=== PATIENT | female | born 1960 | race Caucasian/White ===

== ENCOUNTER 2016-08-17 22:49 | Emergency (ER) | payer OTHER ==
[~2016-08-17] VITALS: Ht 157.5 cm; Wt 77.0 kg
[~2016-08-17 22:49] MED LIST: AMLO-512 PO; ASPI-556 PO; GABA-531 PO; LISI-618 PO; METF500T4 PO
[2016-08-17 23:01] LABS: GLUCOSE,POINT OF CARE 253 MG/DL (70-110)
[2016-08-18] MEDS ORDERED: LIDOCAINE HCL BUFFERED 1% 20 ML VIAL INJ ONE
[2016-08-18] MEDS ORDERED: BACITRACIN/POLYMYXIN B 15 GM OINTMENT TP ONE
[2016-08-18] MEDS ORDERED: PERTUSS(ACELL),DIPH,TET VAC/PF 0.5 ML VIAL IM ONE
[2016-08-18 00:58] VITALS: BP 148/91
== END 2016-08-18 01:01 | disposition home or self-care (01) ==
LOC: EMS 22:50
DX: S61.211A Laceration without foreign body of left index finger without damage to nail, initial encounter (principal); E11.65 Type 2 diabetes mellitus with hyperglycemia; I10 Essential (primary) hypertension; Z88.1 Allergy status to other antibiotic agents; Z88.5 Allergy status to narcotic agent; Z88.6 Allergy status to analgesic agent; Z79.82 Long term (current) use of aspirin; W26.0XXA Contact with knife, initial encounter; Y93.89 Activity, other specified; Y92.89 Other specified places as the place of occurrence of the external cause; Y99.8 Other external cause status
CPT/HCPCS: 12001; 82962; 90471; 90715; 99283; J3490

== ENCOUNTER 2016-08-27 10:20 | Emergency (ER) | payer OTHER ==
[~2016-08-27] VITALS: Ht 157.5 cm; Wt 75.0 kg
[2016-08-27 10:52] LABS: GLUCOSE,POINT OF CARE 357 MG/DL (70-110)
[2016-08-27] MEDS ORDERED: LIDOCAINE HCL 2% VISCOUS 15 ML SOLUTION UDCUP PO ONE (12:15)
[2016-08-27] MEDS ORDERED: MetFORMIN HCL 500 MG TABLET PO ONE (12:15)
[2016-08-27] MEDS ORDERED: LISINOPRIL 10 MG TABLET PO ONE (12:15)
[2016-08-27] MEDS ORDERED: GABAPENTIN 100 MG CAPSULE PO ONE (12:15)
[2016-08-27] MEDS ORDERED: AmLODIPine BESYLATE 5 MG TABLET PO ONE (12:15)
[2016-08-27] MEDS ORDERED: LIDOCAINE HCL BUFFERED 1% 20 ML VIAL INJ ONE (13:00)
[2016-08-27] MEDS ORDERED: LIDOCAINE HCL 1% 10 ML VIAL INJ ONE (13:00)
[2016-08-27] MEDS: HYDROCODONE/ACETAMINOPHEN 5-325 MG TABLET PO ONE ×2 (13:03→13:06)
[2016-08-27] MEDS ORDERED: CEPHALEXIN MONOHYDRATE 500 MG CAPSULE PO ONE (13:30)
[2016-08-27] MEDS ORDERED: BACITRACIN 0.9 GM PACKET OINTMENT TP ONE (13:30)
[2016-08-27 13:35] VITALS: BP 141/85
== END 2016-08-27 13:55 | disposition home or self-care (01) ==
LOC: EMS 10:20
DX: S61.211D Laceration without foreign body of left index finger without damage to nail, subsequent encounter (principal); L08.9 Local infection of the skin and subcutaneous tissue, unspecified; I10 Essential (primary) hypertension; E11.9 Type 2 diabetes mellitus without complications; Z79.82 Long term (current) use of aspirin; Z91.14 Patient's other noncompliance with medication regimen; Z88.5 Allergy status to narcotic agent; Z88.6 Allergy status to analgesic agent; Z88.2 Allergy status to sulfonamides; X58.XXXD Exposure to other specified factors, subsequent encounter; Y92.89 Other specified places as the place of occurrence of the external cause; Y99.8 Other external cause status
CPT/HCPCS: 10060; 82962; 99284; J3490; 29105

== ENCOUNTER 2018-03-15 22:50 | Emergency (ER) | payer OTHER ==
[~2018-03-15] VITALS: Ht 157.5 cm; Wt 77.3 kg
[~2018-03-15 22:50] MED LIST changes: +METF-444 PO; -METF500T4 PO
[2018-03-15 23:03] LABS: GLUCOSE,POINT OF CARE 291 MG/DL (70-110)
[2018-03-15] MEDS ORDERED: KETOROLAC TROMETHAMINE 60 MG/2 ML VIAL IM ONE (23:45)
[2018-03-15] MEDS ORDERED: CARISOPRODOL 350 MG TABLET PO ONE (23:45)
[2018-03-15 23:52] LABS: APPEARANCE,URINE CLEAR (CLEAR); BILIRUBIN,URINE NEGATIVE (NEGATIVE); GLUCOSE, URINE (UA) >=1000 mg/dL (NEGATIVE); KETONES,URINE NEGATIVE (NEGATIVE); LEUKOCYTE ESTERASE ,URINE NEGATIVE (NEGATIVE); NITRATE,URINE NEGATIVE (NEGATIVE); OCCULT BLOOD,URINE NEGATIVE (NEGATIVE); PH,URINE 5.5 (5.0-8.0); PROTEIN,URINE TRACE (NEGATIVE); UROBILINOGEN,URINE 0.2 mg/dL (<=1.0)
[2018-03-15 23:58] LABS: EOSINOPHILS % (AUTO) 1.9 % (1.0-6.0); HEMATOCRIT 47.1 % (36-46); HEMOGLOBIN 15.9 g/dL (12.0-16.0); LYMPHOCYTES # (AUTO) 3.7 K/uL (1.0-4.8); LYMPHOCYTES % (AUTO) 39.7 % (22.0-44.0); MEAN CORPUSCULAR HEMOGLOBIN 28.8 pg (26.0-34.0); MEAN CORPUSCULAR HGB CONC 33.7 G/dL (31.0-37.0); MEAN CORPUSCULAR VOLUME 85 fL (80-100); MONOCYTES # (AUTO) 0.5 K/uL (0.1-1.0); MONOCYTES % (AUTO) 5.5 % (2.0-9.0); NEUTROPHILS # (AUTO) 4.9 K/uL (1.8-7.7); NEUTROPHILS % (AUTO) 51.9 % (40.0-70.0); PLATELET COUNT (AUTO) 164 K/uL (150-450); RED BLOOD CELL COUNT(AUTO) 5.51 MIL/uL (4.00-5.20); RED CELL DISTRIBUTION WIDTH 13.2 % (11.5-14.5)
[2018-03-16 00:04] LABS: BACTERIA,URINE None Seen /HPF (None Seen); RBC,URINE 0-2 /HPF (0-2); SQUAMOUS EPITHELIAL CELL,UR Few /LPF (None Seen); WBC,URINE 0-2 /HPF (0-5)
[2018-03-16 01:00] VITALS: BP 144/87
== END 2018-03-16 03:44 | disposition left against medical advice (07) ==
LOC: EMS 22:51
DX: E11.42 Type 2 diabetes mellitus with diabetic polyneuropathy (principal); M54.5 Low back pain; G89.29 Other chronic pain; I10 Essential (primary) hypertension; Z90.721 Acquired absence of ovaries, unilateral; Z88.2 Allergy status to sulfonamides; Z88.6 Allergy status to analgesic agent; Z88.5 Allergy status to narcotic agent; Z79.82 Long term (current) use of aspirin; Z79.84 Long term (current) use of oral hypoglycemic drugs; Z79.899 Other long term (current) drug therapy
CPT/HCPCS: 36415; 72131; 81001; 82962; 85025; 96372; 99285; J1885; 85007

== ENCOUNTER 2019-03-26 20:01 | Emergency (ER) | payer OTHER ==
[~2019-03-26] VITALS: Ht 157.5 cm; Wt 75.0 kg
[~2019-03-26 20:01] MED LIST changes: -AMLO-512 PO; +AMLO10TA7 PO
[2019-03-26 20:45] LABS: GLUCOSE,POINT OF CARE 271 MG/DL (70-110)
[2019-03-26] MEDS ORDERED: CYCLOBENZAPRINE HCL 10 MG TABLET PO ONE (21:30)
[2019-03-26 21:58] VITALS: BP 141/84
== END 2019-03-26 22:08 | disposition home or self-care (01) ==
LOC: EMS 20:02
DX: M62.838 Other muscle spasm (principal); M79.601 Pain in right arm; I10 Essential (primary) hypertension; E11.9 Type 2 diabetes mellitus without complications; Z98.890 Other specified postprocedural states; Z79.899 Other long term (current) drug therapy; Z79.82 Long term (current) use of aspirin; Z88.2 Allergy status to sulfonamides; Z88.6 Allergy status to analgesic agent; Z88.5 Allergy status to narcotic agent

== ENCOUNTER 2019-05-28 21:13 | Emergency (ER) | payer OTHER | END 2019-05-28 21:30 | disposition left against medical advice (07) | LOC: EMS 21:14 | DX: R51 Headache (principal); Z53.21 Procedure and treatment not carried out due to patient leaving prior to being seen by health care provider ==

== ENCOUNTER 2020-12-18 10:18 | Emergency (ER) | payer OTHER ==
[~2020-12-18] VITALS: Ht 162.6 cm; Wt 79.5 kg
[~2020-12-18 10:18] MED LIST changes: +AMLO-258 PO; -AMLO10TA7 PO; -LISI-618 PO; +LISI20TA24 PO
[2020-12-18 10:21] VITALS: BP 166/115
== END 2020-12-18 11:44 | disposition home or self-care (01) ==
LOC: EMS 10:31
DX: G51.0 Bell's palsy (principal); E11.9 Type 2 diabetes mellitus without complications; I10 Essential (primary) hypertension; Z88.1 Allergy status to other antibiotic agents; Z88.5 Allergy status to narcotic agent; Z79.899 Other long term (current) drug therapy; Z79.82 Long term (current) use of aspirin
CPT/HCPCS: 70450; 82962; 99284

== ENCOUNTER 2021-03-14 22:20 | Inpatient (IN) | payer OTHER ==
[~2021-03-14] VITALS: Ht 157.5 cm; Wt 77.3 kg
[2021-03-14 23:15] LABS: EOSINOPHILS % (AUTO) 2.9 % (1.0-6.0); HEMATOCRIT 46.2 % (36-46); HEMOGLOBIN 15.3 g/dL (12.0-16.0); LYMPHOCYTES # (AUTO) 2.8 K/uL (1.0-4.8); LYMPHOCYTES % (AUTO) 24.5 % (22.0-44.0); MEAN CORPUSCULAR HEMOGLOBIN 29.2 pg (26.0-34.0); MEAN CORPUSCULAR HGB CONC 33.1 G/dL (31.0-37.0); MEAN CORPUSCULAR VOLUME 88 fL (80-100); MONOCYTES # (AUTO) 0.7 K/uL (0.1-1.0); MONOCYTES % (AUTO) 6.4 % (2.0-9.0); NEUTROPHILS # (AUTO) 7.4 K/uL (1.8-7.7); NEUTROPHILS % (AUTO) 65.2 % (40.0-70.0); PLATELET COUNT (AUTO) 171 K/uL (150-450); RED BLOOD CELL COUNT(AUTO) 5.23 MIL/uL (4.00-5.20); RED CELL DISTRIBUTION WIDTH 13.3 % (11.5-14.5)
[2021-03-14 23:21] LABS: ANION GAP 6 mmol/L (8-16); CALCIUM, TOTAL 9.6 mg/dL (8.8-10.5); CARBON DIOXIDE 28 mmol/L (22-29); CHLORIDE 104 mmol/L (98-107); CREATININE 0.53 mg/dL (0.60-1.30); GLOMERULAR FILTR. RATE CALC > 60 mL/min (>60); GLUCOSE,RANDOM 144 mg/dL (70-110); POTASSIUM 3.8 mmol/L (3.5-5.1); SODIUM SERUM 138 mmol/L (136-145); UREA NITROGEN, BLOOD 14 mg/dL (7-18)
[2021-03-14 23:28] LABS: ALANINE AMINOTRANSFERASE 22 U/L (12-78); ALBUMIN 3.8 g/dL (3.4-5.0); ALKALINE PHOSPHATASE 95 U/L (46-116); ASPARTATE AMINOTRANSFERASE 12 U/L (15-37); BILIRUBIN,TOTAL 0.6 mg/dL (0.1-1.0); LIPASE 1041 U/L (73-393); TOTAL PROTEIN, SERUM 7.8 g/dL (6.4-8.2)
[2021-03-15] MEDS ORDERED: MAG HYDROX/AL HYDROX/SIMETH 30 ML SUSP UDCUP PO ONE (00:30)
[2021-03-15] MEDS ORDERED: ONDANSETRON HCL 4 MG/2 ML VIAL IVP ONE (00:30)
[2021-03-15] MEDS ORDERED: SODIUM CHLORIDE 0.9% 500 ML IV ONE (00:30)
[2021-03-15] MEDS ORDERED: FAMOTIDINE 10 MG/ML 2 ML VIAL IVP ONE (00:30)
[2021-03-15] MEDS ORDERED: SODIUM CHLORIDE 0.9% 100 ML ONE (00:37)
[2021-03-15] MEDS ORDERED: IOHEXOL 350 MG/ML 100 ML VIAL ONE (00:37)
[2021-03-15] MEDS ORDERED: HYDROmorphone 2 MG/ML VIAL IVP ONE (02:00)
[2021-03-15 02:56] LABS: COVID AG,FIA SOURCE NASOPHARYNGEAL
[2021-03-15 03:22] LABS: CHOLESTEROL 146 mg/dL (131-200); HDL CHOLESTEROL 49 mg/dL (40-60); LDL CHOL (CALC.) 75 mg/dL (0-130); TRIGLYCERIDES 109 mg/dL (15-150)
[2021-03-15] MEDS ORDERED: ONDANSETRON HCL 4 MG/2 ML VIAL IVP PRN (03:45)
[2021-03-15] MEDS ORDERED: ACETAMINOPHEN 325 MG TABLET PO PRN (03:45)
[2021-03-15] MEDS: RINGERS SOLUTION,LACTATED 1,000 ML IV SCH ×2 (04:32→15:33)
[2021-03-15 08:21] LABS: APPEARANCE,URINE CLEAR (CLEAR); BILIRUBIN,URINE NEGATIVE (NEGATIVE); GLUCOSE, URINE (UA) >=1000 mg/dL (NEGATIVE); KETONES,URINE NEGATIVE (NEGATIVE); LEUKOCYTE ESTERASE ,URINE NEGATIVE (NEGATIVE); NITRATE,URINE NEGATIVE (NEGATIVE); OCCULT BLOOD,URINE NEGATIVE (NEGATIVE); PROTEIN,URINE NEGATIVE (NEGATIVE); UROBILINOGEN,URINE 0.2 mg/dL (<=1.0)
[2021-03-15 08:24] LABS: BACTERIA,URINE None Seen /HPF (None Seen); RBC,URINE None Seen /HPF (0-2); WBC,URINE None Seen /HPF (0-5)
[2021-03-15 08:27] LABS: AMPHET/METH SCREEN,URINE NEGATIVE (NEGATIVE); BARBITURATE SCREEN, URINE NEGATIVE (NEGATIVE); BENZODIAZEPINES SCREEN,URINE NEGATIVE (NEGATIVE); CANNABINOID SCREEN,URINE NEGATIVE (NEGATIVE); COCAINE SCREEN,URINE NEGATIVE (NEGATIVE); METHADONE SCREEN, URINE NEGATIVE (NEGATIVE); OPIATE SCREEN,URINE POSITIVE (NEGATIVE); PHENCYCLIDINE SCREEN,URINE NEGATIVE (NEGATIVE)
[2021-03-15] MEDS: HYDROmorphone 2 MG/ML VIAL IVP PRN ×3 (08:28→21:37)
[2021-03-15 08:50] VITALS: BP 127/84
[2021-03-15] MEDS: AmLODIPine BESYLATE 10 MG TABLET PO SCH ×2 (09:00→09:38)
[2021-03-15] MEDS: LISINOPRIL 20 MG TABLET PO SCH ×2 (09:00→09:38)
[2021-03-15] MEDS: ASPIRIN 81 MG DR TABLET PO SCH ×2 (09:00→09:38)
[2021-03-15] MEDS: GABAPENTIN 300 MG CAPSULE PO SCH ×3 (09:00→21:30)
[2021-03-15] MEDS ORDERED: TICA90TA PO (09:12)
[2021-03-15] MEDS ORDERED: ATOR40TA71 PO (09:12)
[2021-03-15] MEDS ORDERED: DEXTROSE 50%-WATER 25 GM/50 ML SYRINGE IVP PRN (09:15)
[2021-03-15] MEDS ORDERED: SODIUM PHOS/SODIUM BIPHOS 133 ML ENEMA PR ONE (09:15)
[2021-03-15] MEDS ORDERED: INSULIN LISPRO 100 UNITS/ML SQ PRN (09:15)
[2021-03-15] MEDS: HEPARIN SODIUM,PORCINE 5,000 UNITS/ML VIAL SQ SCH ×2 (09:39→15:32)
[2021-03-15] MEDS: TICAGRELOR 90 MG TABLET PO SCH ×2 (10:41→21:30)
[2021-03-15] MEDS ORDERED: GABA-1181 PO (10:57)
[2021-03-15] MEDS ORDERED: ASPI-1444 PO (10:57)
[2021-03-15] MEDS ORDERED: PNEUMOCOCCAL VACCINE POLYVALENT 0.5 ML VIAL [PPSV23] IM. ONE (11:00)
[2021-03-15 11:33] LABS: GLUCOMETER DEV NAME(LOC) 6N.1; GLUCOSE,POINT OF CARE 104 MG/DL (70-110)
[2021-03-15 16:38] VITALS: BP 129/70
[2021-03-15 20:14] VITALS: BP 131/78
[2021-03-15] MEDS ORDERED: MetFORMIN HCL 500 MG TABLET PO SCH (21:00)
[2021-03-15 21:55] LABS: GLUCOMETER DEV NAME(LOC) 6N.1; GLUCOSE,POINT OF CARE 88 MG/DL (70-110)
[2021-03-15 22:45] LABS: GLUCOMETER DEV NAME(LOC) 6S.1; GLUCOSE,POINT OF CARE 97 MG/DL (70-110)
[2021-03-15] MEDS: DEXTROSE 5%-LACTATED RINGERS 1,000 ML IV SCH (22:51)
[2021-03-16] MEDS: HEPARIN SODIUM,PORCINE 5,000 UNITS/ML VIAL SQ SCH (00:35)
[2021-03-16 05:00] VITALS: BP 146/81
[2021-03-16 06:33] LABS: ANION GAP 5 mmol/L (8-16); CALCIUM, TOTAL 9.5 mg/dL (8.8-10.5); CARBON DIOXIDE 29 mmol/L (22-29); CHLORIDE 106 mmol/L (98-107); CREATININE 0.53 mg/dL (0.60-1.30); GLOMERULAR FILTR. RATE CALC > 60 mL/min (>60); GLUCOSE,RANDOM 169 mg/dL (70-110); LIPASE 1028 U/L (73-393); POTASSIUM 4.2 mmol/L (3.5-5.1); SODIUM SERUM 140 mmol/L (136-145); UREA NITROGEN, BLOOD 18 mg/dL (7-18)
[2021-03-16 06:49] LABS: BASOPHILS % (AUTO) 0.7 % (0.0-2.0); HEMATOCRIT 42.2 % (36-46); HEMOGLOBIN 14.1 g/dL (12.0-16.0); LYMPHOCYTES # (AUTO) 1.7 K/uL (1.0-4.8); LYMPHOCYTES % (AUTO) 25.3 % (22.0-44.0); MEAN CORPUSCULAR HEMOGLOBIN 29.3 pg (26.0-34.0); MEAN CORPUSCULAR HGB CONC 33.3 G/dL (31.0-37.0); MEAN CORPUSCULAR VOLUME 88 fL (80-100); MONOCYTES # (AUTO) 0.5 K/uL (0.1-1.0); NEUTROPHILS # (AUTO) 4.3 K/uL (1.8-7.7); PLATELET COUNT (AUTO) 148 K/uL (150-450); RED CELL DISTRIBUTION WIDTH 13.8 % (11.5-14.5)
[2021-03-16 07:59] VITALS: BP 150/74
[2021-03-16] MEDS: AmLODIPine BESYLATE 10 MG TABLET PO SCH (08:10)
[2021-03-16] MEDS: ASPIRIN 81 MG DR TABLET PO SCH (08:10)
[2021-03-16] MEDS: TICAGRELOR 90 MG TABLET PO SCH (08:10)
[2021-03-16] MEDS: LISINOPRIL 20 MG TABLET PO SCH ×3 (08:10→08:22)
[2021-03-16] MEDS: GABAPENTIN 300 MG CAPSULE PO SCH (08:11)
[2021-03-16] MEDS: DEXTROSE 5%-LACTATED RINGERS 1,000 ML IV SCH (08:11)
[2021-03-16] MEDS: HYDROmorphone 2 MG/ML VIAL IVP PRN (08:12)
[2021-03-16] MEDS ORDERED: PENTOXIFYLLINE 400 MG DR TABLET PO SCH (09:00)
[2021-03-16 19:58] LABS: GLUCOMETER DEV NAME(LOC) 6N.1; GLUCOSE,POINT OF CARE 175 MG/DL (70-110)
== END 2021-03-16 10:20 | disposition left against medical advice (07) | DRG 282 ==
LOC: EMS 22:20 → 6N 03-15 04:36
PROVIDERS: ADMIT Internal Medicine; ATTEND Internal Medicine
DX: K85.90 Acute pancreatitis without necrosis or infection, unspecified (principal); R65.10 Systemic inflammatory response syndrome (SIRS) of non-infectious origin without acute organ dysfunction; E11.9 Type 2 diabetes mellitus without complications; I10 Essential (primary) hypertension; I25.10 Atherosclerotic heart disease of native coronary artery without angina pectoris; Z20.822 Contact with and (suspected) exposure to COVID-19; Z53.29 Procedure and treatment not carried out because of patient's decision for other reasons; E78.5 Hyperlipidemia, unspecified; E66.9 Obesity, unspecified; Z68.31 Body mass index [BMI] 31.0-31.9, adult; Z88.2 Allergy status to sulfonamides; Z85.43 Personal history of malignant neoplasm of ovary; Z98.61 Coronary angioplasty status; Z88.6 Allergy status to analgesic agent; Z88.8 Allergy status to other drugs, medicaments and biological substances; I25.2 Old myocardial infarction
CPT/HCPCS: 71045; 74176; 76700; 80048; 80053; 80061; 81001; 82271; 82962; 83690; 83735; 84484; 85025; 93005; 99285; G0480; J1170; J1644; J2405; J3490; J7040; J7050; J7120; Q9967; 36415-L1; 36415-TC

== ENCOUNTER 2021-09-28 10:31 | Emergency (ER) | payer OTHER ==
[~2021-09-28] VITALS: Ht 157.5 cm; Wt 74.1 kg
[~2021-09-28 10:31] MED LIST changes: +ASPI-1444 PO; -ASPI-556 PO; +ATOR40TA71 PO; +GABA-1181 PO; -GABA-531 PO; +TICA90TA PO
[2021-09-28 10:41] VITALS: BP 154/80
[2021-09-28 11:19] LABS: APPEARANCE,URINE CLEAR (CLEAR); BILIRUBIN,URINE NEGATIVE (NEGATIVE); GLUCOSE, URINE (UA) >=1000 mg/dL (NEGATIVE); KETONES,URINE NEGATIVE (NEGATIVE); LEUKOCYTE ESTERASE ,URINE TRACE (NEGATIVE); NITRATE,URINE NEGATIVE (NEGATIVE); OCCULT BLOOD,URINE NEGATIVE (NEGATIVE); PH,URINE 5.5 (5.0-8.0); PROTEIN,URINE NEGATIVE (NEGATIVE); SPECIFIC GRAVITIY, URINE 1.005 (1.003-1.030); UROBILINOGEN,URINE <=1.0 mg/dL (<=1.0)
[2021-09-28 11:32] LABS: BACTERIA,URINE None Seen /HPF (None Seen); RBC,URINE None Seen /HPF (0-2); SQUAMOUS EPITHELIAL CELL,UR Few /LPF (None Seen)
[2021-09-28 12:09] LABS: BASOPHILS % (AUTO) 0.4 % (0.0-2.0); EOSINOPHILS % (AUTO) 0.8 % (1.0-6.0); HEMATOCRIT 46.5 % (36-46); HEMOGLOBIN 15.9 g/dL (12.0-16.0); LYMPHOCYTES # (AUTO) 2.2 K/uL (1.0-4.8); LYMPHOCYTES % (AUTO) 17.2 % (22.0-44.0); MEAN CORPUSCULAR HEMOGLOBIN 29.2 pg (26.0-34.0); MEAN CORPUSCULAR HGB CONC 34.3 G/dL (31.0-37.0); MEAN CORPUSCULAR VOLUME 85 fL (80-100); MONOCYTES # (AUTO) 0.6 K/uL (0.1-1.0); MONOCYTES % (AUTO) 4.9 % (2.0-9.0); NEUTROPHILS # (AUTO) 9.9 K/uL (1.8-7.7); NEUTROPHILS % (AUTO) 76.7 % (40.0-70.0); PLATELET COUNT (AUTO) 169 K/uL (150-450); RED BLOOD CELL COUNT(AUTO) 5.46 MIL/uL (4.00-5.20); RED CELL DISTRIBUTION WIDTH 14.4 % (11.5-14.5)
[2021-09-28 12:20] LABS: ANION GAP 7 mmol/L (8-16); CALCIUM, TOTAL 9.5 mg/dL (8.8-10.5); CARBON DIOXIDE 29 mmol/L (22-29); CHLORIDE 105 mmol/L (98-107); CREATININE 0.49 mg/dL (0.60-1.30); GLOMERULAR FILTR. RATE CALC > 60 mL/min (>60); GLUCOSE,RANDOM 119 mg/dL (70-110); POTASSIUM 4.3 mmol/L (3.5-5.1); SODIUM SERUM 141 mmol/L (136-145); UREA NITROGEN, BLOOD 22 mg/dL (7-18)
[2021-09-28 12:23] LABS: INR 0.9 (0.9-1.1); PROTHROMBIN TIME 9.8 SEC (9.4-11.6)
[2021-09-28 12:25] LABS: ALANINE AMINOTRANSFERASE 22 U/L (12-78); ALBUMIN 3.9 g/dL (3.4-5.0); ALKALINE PHOSPHATASE 98 U/L (46-116); ASPARTATE AMINOTRANSFERASE 17 U/L (15-37); BILIRUBIN,TOTAL 0.5 mg/dL (0.1-1.0); TOTAL PROTEIN, SERUM 7.8 g/dL (6.4-8.2)
[2021-09-28] MEDS ORDERED: POLY17PO47 PO (13:48)
[2021-09-28] MEDS ORDERED: CEPH-556 PO (13:48)
== END 2021-09-28 13:53 | disposition home or self-care (01) ==
LOC: EMS 10:31
DX: K59.00 Constipation, unspecified (principal); I25.10 Atherosclerotic heart disease of native coronary artery without angina pectoris; E11.9 Type 2 diabetes mellitus without complications; I10 Essential (primary) hypertension; F17.210 Nicotine dependence, cigarettes, uncomplicated; Z87.19 Personal history of other diseases of the digestive system; Z87.39 Personal history of other diseases of the musculoskeletal system and connective tissue; Z98.890 Other specified postprocedural states; Z88.2 Allergy status to sulfonamides; Z88.5 Allergy status to narcotic agent; Z88.8 Allergy status to other drugs, medicaments and biological substances
CPT/HCPCS: 74176; 80053; 81001; 83605; 85025; 85610; 85730; 93005; 99285

== ENCOUNTER 2022-03-12 11:38 | Emergency (ER) | payer OTHER ==
[~2022-03-12 11:38] MED LIST changes: +CEPH-556 PO; +POLY17PO47 PO
== END 2022-03-12 13:05 | disposition left against medical advice (07) ==
LOC: EMS 11:41
DX: Z53.21 Procedure and treatment not carried out due to patient leaving prior to being seen by health care provider (principal)

== ENCOUNTER 2022-04-30 07:25 | Emergency (ER) | payer OTHER ==
[~2022-04-30] VITALS: Ht 157.5 cm; Wt 75.0 kg
[2022-04-30 07:55] LABS: COVID AG,FIA SOURCE NASAL SWAB
[2022-04-30] MEDS ORDERED: TICA60TA PO (07:58)
[2022-04-30] MEDS ORDERED: ROSU20TA73 PO (08:07)
[2022-04-30] MEDS ORDERED: EMPA25TA3 PO (08:07)
[2022-04-30] MEDS ORDERED: PANT-31 PO (08:07)
[2022-04-30] MEDS ORDERED: ISOS30TA92 PO (08:07)
[2022-04-30] MEDS ORDERED: METO-408 PO (08:07)
[2022-04-30] MEDS ORDERED: PENT400T72 PO (08:07)
[2022-04-30] MEDS ORDERED: CYCL-397 PO (08:07)
[2022-04-30] MEDS ORDERED: METF-1211 PO (08:07)
[2022-04-30] MEDS ORDERED: GABA-1201 PO (08:07)
[2022-04-30] MEDS ORDERED: DULO-114 PO (08:07)
[2022-04-30] MEDS ORDERED: LOSA-382 PO (08:07)
[2022-04-30 08:38] LABS: INFLUENZA TYPE A NEGATIVE FOR TYPE A (NEGATIVE); INFLUENZA TYPE B NEGATIVE FOR TYPE B (NEGATIVE)
[2022-04-30] MEDS: IPRATROPIUM BROMIDE 0.5 MG/2.5 ML NEB SOLUTION NEB ONE (08:53)
[2022-04-30] MEDS: ALBUTEROL SULFATE 2.5 MG/0.5 ML NEB SOLUTION NEB ONE (08:53)
[2022-04-30] MEDS ORDERED: CALC-1238 PO (09:59)
[2022-04-30] MEDS ORDERED: CALC-1275 PO (09:59)
[2022-04-30] MEDS ORDERED: CHLO25TA3 PO (09:59)
[2022-04-30] MEDS ORDERED: AZIT-104 PO (10:17)
[2022-04-30] MEDS ORDERED: AMOX500C2 PO (10:17)
[2022-04-30] MEDS ORDERED: PRED-554 PO (10:18)
[2022-04-30 11:00] VITALS: BP 135/81
[2022-04-30] MEDS: LIDOCAINE/PF 1% 2 ML VIAL IM ONE (11:03)
[2022-04-30] MEDS: ALBUTEROL SULFATE HFA 90 MCG/PUFF 8 GM INHALER IH ONE (11:03)
[2022-04-30] MEDS: CefTRIAXone SODIUM 1 GM/VIAL IM ONE (11:03)
== END 2022-04-30 11:30 | disposition home or self-care (01) ==
LOC: EMS 08:00
DX: J18.9 Pneumonia, unspecified organism (principal); Z20.822 Contact with and (suspected) exposure to COVID-19; E11.9 Type 2 diabetes mellitus without complications; F17.210 Nicotine dependence, cigarettes, uncomplicated; I10 Essential (primary) hypertension; I25.10 Atherosclerotic heart disease of native coronary artery without angina pectoris; K21.9 Gastro-esophageal reflux disease without esophagitis; Z88.2 Allergy status to sulfonamides
CPT/HCPCS: 99285; 71045; 87426; 82962; 87804; 94640; 96372; J0696; J3490; C9803; J3535; J7613

== ENCOUNTER 2022-10-26 14:54 | Emergency (ER) | payer OTHER ==
[~2022-10-26] VITALS: Ht 157.5 cm; Wt 76.4 kg
[~2022-10-26 14:54] MED LIST changes: +AMOX500C2 PO; +AZIT-104 PO; +CALC-1238 PO; +CALC-1275 PO; -CEPH-556 PO; +CHLO25TA3 PO; +CYCL-397 PO; +DULO-114 PO; +EMPA25TA3 PO; -GABA-1181 PO; +GABA-1201 PO; +ISOS30TA92 PO; -LISI20TA24 PO; +LOSA-382 PO; +METF-1211 PO; +METO-408 PO; +PANT-31 PO; +PENT400T72 PO; -POLY17PO47 PO; +PRED-554 PO; +ROSU20TA73 PO
[2022-10-26 14:57] VITALS: TEMP 98.7
[2022-10-26] MEDS ORDERED: ACETAMINOPHEN 500 MG TABLET PO ONE (15:30)
[2022-10-26 16:00] VITALS: BP 134/71; PULSE 78; RESP 15
[2022-10-26] MEDS ORDERED: ACET-3385 PO (16:27)
== END 2022-10-26 16:48 | disposition home or self-care (01) ==
LOC: EMS 14:58
DX: S80.02XA Contusion of left knee, initial encounter (principal); S80.01XA Contusion of right knee, initial encounter; I25.10 Atherosclerotic heart disease of native coronary artery without angina pectoris; I10 Essential (primary) hypertension; E11.9 Type 2 diabetes mellitus without complications; F17.210 Nicotine dependence, cigarettes, uncomplicated; Z88.2 Allergy status to sulfonamides; Z88.6 Allergy status to analgesic agent; Z88.5 Allergy status to narcotic agent; W18.30XA Fall on same level, unspecified, initial encounter; Y93.89 Activity, other specified; Y92.89 Other specified places as the place of occurrence of the external cause; Y99.8 Other external cause status
CPT/HCPCS: 99283

== ENCOUNTER 2022-12-23 17:28 | Emergency (ER) | payer OTHER ==
[~2022-12-23] VITALS: Ht 157.5 cm; Wt 77.3 kg
[~2022-12-23 17:28] MED LIST changes: +ACET-3385 PO
[2022-12-23 17:35] VITALS: TEMP 98.9
[2022-12-23] MEDS ORDERED: PENT400T37 PO (17:36)
[2022-12-23] MEDS ORDERED: OXYC5TAB3 PO (17:36)
[2022-12-23] MEDS ORDERED: AMLO10TA55 PO (17:36)
[2022-12-23 17:41] VITALS: BP 133/82; PULSE 76; RESP 16
[2022-12-23] MEDS ORDERED: DOXYCYCLINE HYCLATE 100 MG TABLET PO ONE (17:45)
[2022-12-23] MEDS ORDERED: BACITRACIN 0.9 GM PACKET OINTMENT TP ONE (17:45)
[2022-12-23] MEDS ORDERED: DOXY-354 PO (17:52)
== END 2022-12-23 19:16 | disposition home or self-care (01) ==
LOC: EMS 17:29
DX: L03.116 Cellulitis of left lower limb (principal); L03.115 Cellulitis of right lower limb; E11.9 Type 2 diabetes mellitus without complications; I10 Essential (primary) hypertension; K21.9 Gastro-esophageal reflux disease without esophagitis; I25.10 Atherosclerotic heart disease of native coronary artery without angina pectoris; I63.9 Cerebral infarction, unspecified; F17.210 Nicotine dependence, cigarettes, uncomplicated; Z86.73 Personal history of transient ischemic attack (TIA), and cerebral infarction without residual deficits; Z88.2 Allergy status to sulfonamides; Z88.5 Allergy status to narcotic agent
CPT/HCPCS: 82962; 99283

== ENCOUNTER 2023-06-17 16:31 | Emergency (ER) | payer OTHER ==
[~2023-06-17] VITALS: Ht 157.5 cm; Wt 68.2 kg
[~2023-06-17 16:31] MED LIST changes: +AMLO10TA55 PO; -AMOX500C2 PO; -ATOR40TA71 PO; -AZIT-104 PO; -CALC-1275 PO; -CYCL-397 PO; +DOXY-354 PO; -DULO-114 PO; -ISOS30TA92 PO; -METF-1211 PO; +OXYC5TAB3 PO; +PENT400T37 PO; -PRED-554 PO
[2023-06-17 16:39] VITALS: TEMP 98.5
[2023-06-17] MEDS ORDERED: ACET-2895 PO (16:45)
[2023-06-17 17:19] LABS: COVID AG,FIA SOURCE NASAL SWAB
[2023-06-17 17:36] LABS: INFLUENZA TYPE A NEGATIVE FOR TYPE A (NEGATIVE); INFLUENZA TYPE B NEGATIVE FOR TYPE B (NEGATIVE); SARS-COV2 (COVID) ANTIGEN,FIA Negative (Negative)
[2023-06-17 19:40] VITALS: BP 127/70
[2023-06-17] MEDS ORDERED: CALC-462 PO (20:04)
[2023-06-17] MEDS ORDERED: ROSU10TA72 PO (20:04)
[2023-06-17] MEDS ORDERED: GABA-1181 PO (20:04)
[2023-06-17] MEDS ORDERED: OMEP40CA21 PO (20:04)
[2023-06-17] MEDS: PredniSONE 20 MG TABLET PO ONE (20:09)
[2023-06-17] MEDS: ALBUTEROL SULFATE 2.5 MG/0.5 ML NEB SOLUTION NEB ONE (20:12)
[2023-06-17] MEDS: IPRATROPIUM BROMIDE 0.5 MG/2.5 ML NEB SOLUTION NEB ONE (20:12)
[2023-06-17 20:15] VITALS: PULSE 62; RESP 20; O2SAT 99
[2023-06-17 20:21] LABS: BASOPHILS % (AUTO) 0.9 % (0.0-2.0); EOSINOPHILS % (AUTO) 1.9 % (1.0-6.0); HEMOGLOBIN 14.6 g/dL (12.0-16.0); LYMPHOCYTES # (AUTO) 3.6 K/uL (1.0-4.8); LYMPHOCYTES % (AUTO) 36.9 % (22.0-44.0); MEAN CORPUSCULAR HEMOGLOBIN 29.6 pg (26.0-34.0); MEAN CORPUSCULAR HGB CONC 33.3 G/dL (31.0-37.0); MEAN CORPUSCULAR VOLUME 89 fL (80-100); MONOCYTES # (AUTO) 0.7 K/uL (0.1-1.0); MONOCYTES % (AUTO) 6.8 % (2.0-9.0); NEUTROPHILS # (AUTO) 5.2 K/uL (1.8-7.7); NEUTROPHILS % (AUTO) 53.5 % (40.0-70.0); PLATELET COUNT (AUTO) 176 K/uL (150-450); RED BLOOD CELL COUNT(AUTO) 4.94 MIL/uL (4.00-5.20); RED CELL DISTRIBUTION WIDTH 13.4 % (11.5-14.5); WHITE BLOOD COUNT (AUTO) 9.8 K/uL (4.5-11.0)
[2023-06-17 20:25] VITALS: PULSE 60; RESP 20; O2SAT 100
[2023-06-17 20:33] LABS: ANION GAP 7 mmol/L (8-16); CALCIUM, TOTAL 9.2 mg/dL (8.8-10.5); CARBON DIOXIDE 28 mmol/L (22-29); CHLORIDE 105 mmol/L (98-107); CREATININE 0.48 mg/dL (0.60-1.30); GLOMERULAR FILTR. RATE CALC > 60 mL/min (>60); GLUCOSE,RANDOM 171 mg/dL (70-110); POTASSIUM 4.1 mmol/L (3.5-5.1); SODIUM SERUM 140 mmol/L (136-145); UREA NITROGEN, BLOOD 18 mg/dL (7-18)
[2023-06-17 20:39] LABS: ALANINE AMINOTRANSFERASE 21 U/L (12-78); ALBUMIN 3.3 g/dL (3.4-5.0); ALKALINE PHOSPHATASE 98 U/L (46-116); ASPARTATE AMINOTRANSFERASE 14 U/L (15-37); BILIRUBIN,TOTAL 0.4 mg/dL (0.1-1.0); TOTAL PROTEIN, SERUM 6.5 g/dL (6.4-8.2)
[2023-06-17 20:41] LABS: TROPONIN I-HIGH SENSITIVITY 12 ng/L (<51)
[2023-06-17 20:42] LABS: B-TYPE NATRIURETIC PEPTIDE 68 pg/mL (0-100)
[2023-06-17] MEDS ORDERED: AZIT250T9 PO (21:26)
[2023-06-17] MEDS ORDERED: ALBU18HF12 IH (21:26)
[2023-06-17] MEDS ORDERED: PRED-554 PO (21:26)
== END 2023-06-17 21:38 | disposition home or self-care (01) ==
LOC: EMS 16:35
DX: J40 Bronchitis, not specified as acute or chronic (principal); I25.10 Atherosclerotic heart disease of native coronary artery without angina pectoris; I10 Essential (primary) hypertension; E11.9 Type 2 diabetes mellitus without complications; F17.210 Nicotine dependence, cigarettes, uncomplicated; Z98.890 Other specified postprocedural states; Z88.2 Allergy status to sulfonamides; Z88.6 Allergy status to analgesic agent; Z88.5 Allergy status to narcotic agent; Z20.822 Contact with and (suspected) exposure to COVID-19
CPT/HCPCS: 80053; 82962; 83880; 87420; 84484; 85025; 87804; 36415; 94640; 71045; 99285; 93005; 87426; J7512; J7613

== ENCOUNTER 2024-02-18 10:24 | Emergency (ER) | payer OTHER ==
[~2024-02-18] VITALS: Ht 157.5 cm; Wt 65.9 kg
[~2024-02-18 10:24] MED LIST changes: +ACET-2895 PO; -ACET-3385 PO; +ALBU18HF12 IH; -AMLO-258 PO; -CALC-1238 PO; +CALC-462 PO; -CHLO25TA3 PO; -DOXY-354 PO; +GABA-1181 PO; -GABA-1201 PO; -LOSA-382 PO; +OMEP40CA21 PO; -OXYC5TAB3 PO; -PANT-31 PO; -PENT400T37 PO; +PRED-554 PO; +ROSU10TA72 PO; -ROSU20TA73 PO
[2024-02-18 10:33] VITALS: TEMP 98.7
[2024-02-18 10:39] LABS: COVID AG,FIA SOURCE NASAL SWAB
[2024-02-18] MEDS: GuaiFENesin/D-METHORPHAN [SUGAR-FREE] 200-20MG/10 ML SYRUP UDCUP PO ONE (10:53)
[2024-02-18] MEDS: PredniSONE 20 MG TABLET PO ONE (10:55)
[2024-02-18 11:09] LABS: SARS-COV2 (COVID) ANTIGEN,FIA Negative (Negative)
[2024-02-18 11:10] LABS: INFLUENZA TYPE A NEGATIVE FOR TYPE A (NEGATIVE); INFLUENZA TYPE B NEGATIVE FOR TYPE B (NEGATIVE)
[2024-02-18 11:18] LABS: HEMATOCRIT 48.7 % (36-46); LYMPHOCYTES # (AUTO) 3.2 K/uL (1.0-4.8); LYMPHOCYTES % (AUTO) 47.2 % (22.0-44.0); MEAN CORPUSCULAR HEMOGLOBIN 29.8 pg (26.0-34.0); MEAN CORPUSCULAR HGB CONC 32.9 G/dL (31.0-37.0); MEAN CORPUSCULAR VOLUME 90 fL (80-100); MONOCYTES # (AUTO) 0.5 K/uL (0.1-1.0); MONOCYTES % (AUTO) 7.4 % (2.0-9.0); NEUTROPHILS # (AUTO) 2.9 K/uL (1.8-7.7); NEUTROPHILS % (AUTO) 42.4 % (40.0-70.0); PLATELET COUNT (AUTO) 179 K/uL (150-450); RED BLOOD CELL COUNT(AUTO) 5.39 MIL/uL (4.00-5.20); RED CELL DISTRIBUTION WIDTH 13.7 % (11.5-14.5); WHITE BLOOD COUNT (AUTO) 6.9 K/uL (4.5-11.0)
[2024-02-18 11:27] LABS: ANION GAP 6 mmol/L (8-16); CALCIUM, TOTAL 9.1 mg/dL (8.8-10.5); CARBON DIOXIDE 26 mmol/L (22-29); CHLORIDE 107 mmol/L (98-107); CREATININE 0.57 mg/dL (0.60-1.30); GLOMERULAR FILTR. RATE CALC > 60 mL/min (>60); GLUCOSE,RANDOM 103 mg/dL (70-110); SODIUM SERUM 139 mmol/L (136-145); UREA NITROGEN, BLOOD 26 mg/dL (7-18)
[2024-02-18] MEDS: IPRATROPIUM BROMIDE 0.5 MG/2.5 ML NEB SOLUTION NEB ONE (11:28)
[2024-02-18] MEDS: ALBUTEROL SULFATE 2.5 MG/0.5 ML NEB SOLUTION NEB ONE (11:28)
[2024-02-18 11:32] LABS: B-TYPE NATRIURETIC PEPTIDE 22 pg/mL (0-100)
[2024-02-18 11:37] LABS: TROPONIN I-HIGH SENSITIVITY 10 ng/L (<51)
[2024-02-18] MEDS ORDERED: LEVO-72 PO (11:58)
[2024-02-18] MEDS ORDERED: PRED-554 PO (11:58)
[2024-02-18] MEDS: LEVOFLOXACIN 500 MG TABLET PO ONE (12:18)
[2024-02-18 12:45] VITALS: BP 130/69; PULSE 72; RESP 18; O2SAT 95
== END 2024-02-18 12:45 | disposition home or self-care (01) ==
LOC: EMS 10:28
DX: J44.1 Chronic obstructive pulmonary disease with (acute) exacerbation (principal); F17.290 Nicotine dependence, other tobacco product, uncomplicated; I10 Essential (primary) hypertension; E11.9 Type 2 diabetes mellitus without complications; K21.9 Gastro-esophageal reflux disease without esophagitis; Z79.82 Long term (current) use of aspirin; Z88.2 Allergy status to sulfonamides; Z88.5 Allergy status to narcotic agent; Z88.6 Allergy status to analgesic agent; Z98.890 Other specified postprocedural states; Z20.822 Contact with and (suspected) exposure to COVID-19
CPT/HCPCS: 99285; 71045; 87426; 80048; 83880; 84484; 85025; 87804; 36415; 94640; 93005; J7512; J7613